=== PATIENT | female | born 1955 | race African-American/Black ===

== ENCOUNTER → 2017-02-28 | Day surgery (SDC) | payer OTHER ==
[2017-02-28 09:58] LABS: ALBUMIN 4.1 g/dl (3.4-5.0); ANION GAP 12 (8-16); CALCIUM 8.4 mg/dL (8.5-10.1); CO2 29 mmol/L (21-32); GLUCOSE,RANDOM 115 mg/dL (74-106)
[2017-02-28 10:10] LABS: ALK PHOS 63 U/L (45-117); BILIRUBIN,TOTAL 0.7 mg/dL (0.2-1.0); COCKROFT - GAULT 0; CREATININE 0.8 mg/dL (0.55-1.02); FREE T4 1.06 ng/dl (0.76-1.46); SGOT/AST 114 U/L (15-37); SGPT/ALT 99 U/L (12-78); THYROID STIMULATING HORMONE 0.56 uIU/ml (0.358-3.74)
[2017-03-01 06:06] LABS: FREE T3 3.5 pg/mL (2.0-4.4)
--- NOTE | 2017-03-07 11:18 | PATH ---
Cytology Non-Gynecological Report Patient Name: MAGALIE MENDOZA [facility]. Rec. #: [id number] /Age/Gender: 1955 (Age: 61) / F Account: [id number] Location: RADIOLOGY Taken: 02/28/2017 Received: 02/28/2017 Reported: 03/01/2017 Physicians: Kin Squires M.D. Specimen(s) Received RIGHT THYROID FNA Clinical History Right thyroid nodule, 1.97 x 1.07 x 1.26 cm Final Diagnosis THYROID GLAND, RIGHT LOBE, US GUIDED FINE NEEDLE ASPIRATION BIOPSY: SATISFACTORY FOR EVALUATION. NO MALIGNANT CELLS IDENTIFIED. CONSISTENT WITH NODULAR GOITER (BENIGN FOLLICULAR NODULE, BETHESDA CATEGORY II, BENIGN), SEE COMMENT. Comment: The smear show clusters of bland appearing follicular epithelial cells arranged in mixed macro-and microfollicles. Colloid is present. Electronically Signed Jean Claude Guzmán M.D. Gross Description Received are three air dried smears, three smears in 95% alcohol, and 20 cc of bloody fluid in formalin. Three diff-quik stained slides, three Pap stained slides and one cell block are made.
== END | disposition home or self-care (01) ==
LOC: JRADIR 08:40
PROVIDERS: ATTEND Internal Medicine Endocrinology, Diabetes & Metabolism
PROC: 0G9H3ZX Drainage of Right Thyroid Gland Lobe, Percutaneous Approach, Diagnostic (ICD-10-PCS; principal; 2017-02-28)
PROC: BG44ZZZ Ultrasonography of Thyroid Gland (ICD-10-PCS; 2017-02-28)
DX: E04.1 Nontoxic single thyroid nodule (principal)
CPT/HCPCS: 36415; 76942; 80053; 84439; 84443; 84445; 84481; 86376; 88173; 88305-TC

== ENCOUNTER → 2018-08-20 | Day surgery (SDC) | payer OTHER ==
--- NOTE | 2018-08-21 16:52 | PATH ---
Cytology Non-Gynecological Report Patient Name: MAGALIE MENDOZA [facility]. Rec. #: [id number] /Age/Gender: 1955 (Age: 63) / F Account: [id number] Location: RADIOLOGY INTER Taken: 08/20/2018 Received: 08/20/2018 Reported: 08/21/2018 Physicians: Kin Squires M.D. Specimen(s) Received THYROID FNA LEFT Clinical History Left thyroid nodule, 1.56 x 0.98 x 0.88 cm Final Diagnosis THYROID, LEFT, FINE NEEDLE ASPIRATION: SATISFACTORY FOR EVALUATION. BETHESDA CLASS II: BENIGN. CYTOLOGIC FINDINGS ARE CONSISTENT WITH A BENIGN FOLLICULAR NODULE WITH CYSTIC CHANGE. FOLLICULAR CELLS WITH FOCAL REACTIVE CHANGES DISPERSED SHEETS, AGGREGATES, MACRO AND MICRO-FOLLICLES IN A BACKGROUND OF THIN COLLOID AND MACROPHAGES. Electronically Signed Rea Marie M.D. Gross Description Received are eight direct smears, four of which are air-dried and Diff-Quik stained, and four of which are alcohol fixed and Pap stained. Also received is 20 ml of bloody formalin from which one cellblock is prepared.
== END | disposition home or self-care (01) ==
LOC: JRADIR 09:23
PROVIDERS: ATTEND Internal Medicine Endocrinology, Diabetes & Metabolism
PROC: 0G9G3ZX Drainage of Left Thyroid Gland Lobe, Percutaneous Approach, Diagnostic (ICD-10-PCS; principal; 2018-08-20)
DX: E04.1 Nontoxic single thyroid nodule (principal)
CPT/HCPCS: 76942; 88173; 88305-TC

== ENCOUNTER 2020-07-24 18:01 | Emergency (ER) | payer OTHER ==
--- OUTSIDE RECORDS SUMMARY | 2020-07-24 18:16 | XMS ---
:1955 Author Organization [facility] Care Team Providers Name Role Phone DiGSukumar grant Unavailable [phone] DiGiorno, Christopher Unavailable [phone] DiGiorno, Christopher Unavailable [phone] Re-disclosure Warning The records that you are about to access may contain information from federally- assisted alcohol or drug abuse programs. If such information is present, then the following federally mandated warning applies: This information has been disclosed to you from records protected by federal confidentiality rules (42 CFR part 2). The federal rules prohibit you from making any further disclosure of this information unless further disclosure is expressly permitted by the written consent of the person to whom it pertains or as otherwise permitted by 42 CFR part 2. A general authorization for the release of medical or other information is NOT sufficient for this purpose. The Federal rules restrict any use of the information to criminally investigate or prosecute any alcohol or drug abuse patient.The records that you are about to access may contain highly sensitive health information, the redisclosure of which is protected by Article 27-F of the [facility] Public Health law. If you continue you may haveaccess to information: Regarding HIV / AIDS; Provided by facilities licensed or operated by the [facility] Office of Mental Health; or Provided by the [facility] Office for People With Developmental Disabilities. If such information is present, then the following [facility] mandated warning applies: This information has been disclosed to you from confidential records which are protected by state law. State law prohibits you from making any further disclosure of this information without the specific written consent of the person to whom it pertains, or as otherwise permitted by law. Any unauthorized further disclosure in violation of state law may result in a fine or half-way sentence or both. A general authorization for the release of medical or other information is NOT sufficient authorization for further disclosure. Encounters Encounter Providers Location Date Indications Data Source(s ) Attender: [place] 06/16/2020 [facility] [place] [place]:[facility]:00 AM Medical, ) EDT Office Attender: [place] 06/16/2020 12:00:00 AM ED T MEDGEN ([facility], ) Office Attender: [place] 06/16/2020 12:00:00 AM ED T MEDGEN ([facility], ) Office Medications Medication Brand Start Product Dose Route Administrative Pharmacy [facility] Indications Reaction Description Data Name Date Form Instructions Instructions Source(s) Hydrochloro HYDROC 06/16/ complet HYDROC HLOROT MEDGEN (St thiazide 25 HLOROT 2019 ed HIAZIDE-LOS A [facility] MG / HIAZID 12:00: RTAN Medical, Losartan E-LOSA 00 AM PC) Potassium RTAN:9 EDT 100 MG Oral 14551 Tablet HYDROCHLORO THIAZIDE-LO SARTAN:9794 71 Lecithin LECITH 06/16/ complet LECITHIN MED[facility] (St LECITHIN:82 IN:822019 ed [facility] 14 4 12:00: Medical, 00 AM PC) EDT Lecithin LECITH 06/16/ complet LECITHIN [facility] (St LECITHIN:82 IN:822019 ed [facility] 14 4 12:00: Medical, 00 AM PC) EDT pantoprazol PANTOP complet PANTOP RAZOLE [facility] (St e 40 MG RAZOLE 2019 ed [facility] Delayed :41754 12:00: Medical, Release 0 00 AM PC) Oral Tablet EDT PANTOPRAZOL E:[id number] Amlodipine AMLODI 06/16/ complet AMLODIP INE MED[facility] (St 10 MG Oral PINE:3 2019 ed [facility] Tablet 38198 12:00: Medical, AMLODIPINE: 00 AM PC) [id number] EDT Zolpidem ZOLPID 06/16/ complet ZOLPIDEM [facility] (St tartrate 10 EM:854 2019 ed [facility] MG Oral 873 12:00: Medical, Tablet 00 AM PC) ZOLPIDEM:85 EDT 4873 atorvastati ATORVA 06/16/ complet ATORVA STATIN [facility] (St n 20 MG STATIN 2019 ed [facility] Oral Tablet :85149 12:00: Medi wyatt, ATORVASTATI 0 00 AM PC) N:[id number] EDT atorvastati ATORVA 06/16/ complet ATORVA STATIN [facility] (St n 20 MG STATIN 2019 ed [facility] Oral Tablet :81124 12:00: Medi wyatt, ATORVASTATI 0 00 AM PC) N:[id number] EDT Hydrochloro HYDROC 06/16/ complet HYDROC HLOROT [facility] (St thiazide 25 HLOROT 2019 ed HIAZIDE-LOS A [facility] MG / HIAZID 12:00: RTAN Medical, Losartan E-LOSA 00 AM PC) Potassium RTAN:9 EDT 100 MG Oral 29166 Tablet HYDROCHLORO THIAZIDE-LO SARTAN:9794 71 Zolpidem ZOLPID 06/16/ complet ZOLPIDEM [facility] (St tartrate 10 EM:854 2019 ed [facility] MG Oral 873 12:00: Medical, Tablet 00 AM PC) ZOLPIDEM:85 EDT 4873 pantoprazol PANTOP 06/16/ complet PANTOP RAZOLE [facility] (St e 40 MG RAZOLE 2019 ed [facility] Delayed :42734 12:00: Medical, Release 0 00 AM PC) Oral Tablet EDT PANTOPRAZOL E:790244 Amlodipine AMLODI 06/16/ complet AMLODIP INE [facility] (St 10 MG Oral PINE:3 2019 ed [facility] Tablet 75759 12:00: Medical, AMLODIPINE: 00 AM PC) [id number] EDT Insurance Providers Payer name Policy type Policy ID Covered Covered democrat's Policy P neeraj / Coverage democrat ID relationship to Narayan Inf ormation type narayan GHI CBP OUTPT [id number] SP [id number] MEDICARE [id number] SP [id number] GHI PPO [id number] SP [id number] MEDICARE [id number] SP [id number] [facility] [id number] [place] [id number] PART B [facility] PPO [facility] SP [facility] [id number] [facility] PPO [id number] SP [id number] Problems, Conditions, and Diagnoses Code Display Name Description Problem Type Effective Dates Data Source(s) K70.0 Alcoholic fatty ALCOHOLIC FATTY Problem 06/16/2020 MEDG EN (St liver LIVER 12:00:00 AM EDT Carmen cadet, ) K30 Functional FUNCTIONAL Problem 06/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 MEDGEN (St dyspepsia DYSPEPSIA 12:00:00 AM EDT Carmen cadet ) Z12.11 Encounter for ENCOUNTER FOR Problem 06/16/2020 MEDGEN ( St screening for SCREENING FOR 12:00:00 AM EDT [facility] MALIGNANT NEOPLASM PC) neoplasm of colon OF COLON Surgeries/Procedures Procedure Description Date Indications Data Source(s) Documentation of current 06/16/2020 MED [facility] ([facility] (procedure) 12:00:00 AM EDT Rainer jacinto ) Documentation of current 06/16/2020 MED [facility] ([facility] (procedure) 12:00:00 AM EDT Rainer jacinto ) COLLECTION VENOUS BLOOD 06/16/2020 MED[facility] EN ([facility] VENIPUN[facility]URE 12:00:00 AM T [facility] ) Documentation of current 06/16/2020 MED GEN ([facility] (procedure) 12:00:00 AM EDT Rainer jacinto ) Social History Code Duration Value Status Description Data Source(s ) Smoking 06/16/2020 Born in completed Born in [facility] (St 12:00:00 AM EDT [place] Ex tobacco, quit ) tobacco, quit smoking 1995 Drinks smoking 1995 multiple glasses of Drinks multiple wine every day No glasses of wine IVDA/DA every day No IVDA/DA Smoking 06/16/2020 Unknown if ever completed Unknown if ever MEDG EN (St 12:00:00 AM EDT smoked smoked Carmen cadet ) Smoking 06/16/2020 Born in completed Born in [place] [facility] (St 12:00:[place] Ex Carmen Spear [place], [place] Ex tobacco, quit ) tobacco, quit smoking 1995 Drinks smoking 1995 multiple glasses of Drinks multiple wine every day No glasses of wine IVDA/DA every day No IVDA/DA Smoking 06/16/2020 Unknown if ever completed Unknown if ever MEDG EN (St 12:00:00 AM EDT smoked smoked Carmen Reaves dicjaden, ) Vital Signs ID Date Data Source UNK Name Value Range Interpretation Code Description Data Source(s) Heart rate 93 /min 93 /min [facility] ([facility] , ) Inhaled oxygen 96 % 96 % MED[facility] ([facility]) Body mass index 31.6 kg/m2 31.6 kg/m2 MEDGEN (S t (BMI) [Ratio] [facility]) Diastolic blood 70 mm[Hg] 70 mm[Hg] MEDGEN (S [facility]) Systolic blood 138 mm[Hg] 138 mm[Hg] MEDGEN ([facility]) Body weight 162 lb 162 lb MEDGEN ([facility]) Body height 60 in 60 in MED[facility] ([facility]) Heart rate 93 /min 93 /min [facility] ([facility]) Inhaled oxygen 96 % 96 % MEDGEN ([facility]) Body mass index 31.6 kg/m2 31.6 kg/m2 MEDGEN (S t (BMI) [Ratio] [facility]) Diastolic blood 70 mm[Hg] 70 mm[Hg] MEDGEN (S [facility]) Systolic blood 138 mm[Hg] 138 mm[Hg] MEDGEN ([facility]) Body weight 162 lb 162 lb MEDGEN ([facility]) Body height 60 in 60 in MED[facility] ([facility])
[2020-07-24 18:22] VITALS: BP 141/70; PULSE 80; TEMP 99.2; BMI 30.6
--- NOTE | 2020-07-24 18:35 | PDOC ---
History of Present Illness - General Chief Complaint: Cold Symptoms Stated Complaint: COLD SYMPTOMS Time Seen by Provider: 07/24/20 18:15 - History of Present Illness Initial Comments: 07/24/20 18:32 65 F with h/o HTN, HLD presenting to ED with cough and sore throat x 1 week. Pt states that she started having a sore throat, which she gets often and attributes to her hiatal hernia and reflux. Pt then developed a dry cough. She denies any F/C. Pt notes that her cough is worse at night. Denies any SOB. Pt states that she was prescribed augmentin by her PMD, remotely. However, after one dose last night, pt began to have GI upset, with vomiting and diarrhea. This has since resolved. Pt denies N/V/D currently. 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) COPD: No HTN: Yes Hypercholesterolemia: Yes Thyroid Disease: Yes - Surgical History Abdominal Surgery: Yes (EXPLORATORY) - Reproductive History Is Patient Now?: No - Psycho-Social/Smoking History Smoking Status: Yes Smoking History: Never smoked Have you smoked in the past 12 months: No Number of Cigarettes Smoked Daily: 0 If you are a former smoker, when did you quit?: 1985 Information on smoking cessation initiated: No - Substance Abuse Hx (Audit-C & DAST Scrn) How often the patient has a drink containing alcohol: Never Score: In Men: 4 or > Positive; In Women: 3 or > Positive: 0 Screen Result (Pos requires Nsg. Audit-10AR): Negative In the last yr the pt used illegal drug/Rx for NonMed reason: No Score: Yes response is considered Positive: 0 Screen Result (Positive result requires Nsg. DAST-10): Negative Review of Systems - Review of Systems Comments:: 07/24/20 18:35 "GENERAL/CONSTITUTIONAL: No fever or chills. No weakness. HEAD, EYES, EARS, NOSE AND THROAT: No change in vision. No ear pain or discharge. + sore throat. CARDIOVASCULAR: No chest pain, no shortness of breath, no loss of consciousness RESPIRATORY: + cough, no wheezing, or hemoptysis. GASTROINTESTINAL: No nausea, vomiting, diarrhea or constipation. GENITOURINARY: No dysuria, frequency, or change in urination. MUSCULOSKELETAL: No joint or muscle swelling or pain. No neck or back pain. SKIN: No rash NEUROLOGIC: No vertigo, no change in strength/sensation. ENDOCRINE: No increased thirst. No abnormal weight change. HEMATOLOGIC/LYMPHATIC: No anemia, easy bleeding, or history of blood clots. *Physical Exam - Vital Signs Last Vital Signs Temp Pulse Resp BP Pulse Ox 99.2 F 80 20 141/70 100 07/24/20 18:09 07/24/20 18:09 07/24/20 18:09 07/24/20 18:09 07/24/20 18:09 - Physical Exam 07/24/20 18:35 GENERAL: Awake, alert, and fully oriented, in no acute distress. HEAD: No signs of trauma EYES: PERRLA, EOMI, sclera anicteric, conjunctiva clear ENT: Auricles normal inspection, hearing grossly normal, nares patent, oropharynx clear without exudates. Moist mucosa NECK: Nontender, no stepoffs, Normal ROM, supple, no lymphadenopathy, JVD, or masses LUNGS: Breath sounds equal, clear to auscultation bilaterally. No wheezes, and no crackles HEART: Regular rate and rhythm, normal S1 and S2, no murmurs, rubs or gallops ABDOMEN: Soft, nontender, normoactive bowel sounds. No guarding, no rebound. No masses EXTREMITIES: Normal range of motion, no edema. No clubbing or cyanosis. No cords, erythema, or tenderness NEUROLOGICAL: Cranial nerves II through XII intact. 5/5 strength and sensation in all extremities, Normal speech, normal gait, normal cerebellar function SKIN: Warm, Dry, normal turgor, no rashes or lesions noted. ED Treatment Course - RADIOLOGY Radiology Studies Ordered: Category Date Time Status CHEST PA & LAT [RAD] Stat Radiology 07/24/20 18:29 Ordered Medical Decision Making - Medical Decision Making 07/24/20 18:35 65 F with cough and sore throat. Pt very well appearing, with normal exam. - COVID, strep - CXR 07/24/20 19:09 CXR clear on my read STrep negative Pt is well appearing, with normal vitals. Clinically stable for DC at this time. I discussed the physical exam findings, ancillary test results and final diagnoses with the patient. I answered all of the patient's questions. The patient was satisfied with the care received and felt comfortable with the discharge plan and treatment plan. The patient agrees to follow up with the primary care physician within 24-72 hours. Discharge - Discharge Information Problems reviewed: Yes Clinical Impression/Diagnosis: Cough, Sore throat Condition: Stable Disposition: HOME - Follow up/Referral - Patient Discharge Instructions Patient Printed Discharge Instructions: DI for Cough -- Adult, [facility] COVID-19 Isolation Protocol Additional Instructions: Your COVID test will likely result in 2-3 days. We will call you with the result. In the meantime, be sure to isolate from others to prevent potential spread of the illness. If you experience worsening cough, shortness of breath, chest pain, or any other concerning symptoms, return to the ER immediately. - Post Discharge Activity
== END 2020-07-24 19:15 | disposition home or self-care (01) ==
LOC: FER 18:01
DX: R05 Cough (principal); J02.9 Acute pharyngitis, unspecified
CPT/HCPCS: 71046-TC-FY; 87070; 87880; 99284-25; C9803; U0003

== ENCOUNTER 2021-02-01 04:43 | Day surgery (SDC) | payer OTHER ==
[2021-01-26 15:42] VITALS: BMI 32.8
[2021-02-01 11:50] VITALS: TEMP 97.6
[2021-02-01 12:45] VITALS: BP 120/51; PULSE 80
== END 2021-02-01 12:45 | disposition home or self-care (01) ==
LOC: JASU-ENDO 04:43 → MERGE 11:30 → JASU-ENDO 12:45
PROVIDERS: ATTEND Internal Medicine Gastroenterology
PROC: 0DB78ZX Excision of Stomach, Pylorus, Via Natural or Artificial Opening Endoscopic, Diagnostic (ICD-10-PCS; 2021-02-01)
PROC: 0DB98ZX Excision of Duodenum, Via Natural or Artificial Opening Endoscopic, Diagnostic (ICD-10-PCS; principal; 2021-02-01 11:30)
DX: K31.7 Polyp of stomach and duodenum (principal); D13.1 Benign neoplasm of stomach
CPT/HCPCS: 88305-TC; 88342-TC

== ENCOUNTER 2021-02-08 04:15 | Day surgery (SDC) | payer OTHER ==
[2021-02-04 16:43] VITALS: BMI 32.8
[2021-02-08 09:37] VITALS: TEMP 98
[2021-02-08 10:27] VITALS: BP 93/59; PULSE 76
== END 2021-02-08 10:28 | disposition home or self-care (01) ==
LOC: JASU-ENDO 04:15 → MERGE 09:00 → JASU-ENDO 10:28
PROVIDERS: ATTEND Internal Medicine Gastroenterology
PROC: 0DBK8ZX Excision of Ascending Colon, Via Natural or Artificial Opening Endoscopic, Diagnostic (ICD-10-PCS; principal; 2021-02-08 09:00)
DX: Z12.11 Encounter for screening for malignant neoplasm of colon (principal); K63.5 Polyp of colon; K64.8 Other hemorrhoids; K57.30 Diverticulosis of large intestine without perforation or abscess without bleeding; K63.89 Other specified diseases of intestine; K62.5 Hemorrhage of anus and rectum; Z86.010 Personal history of colon polyps
CPT/HCPCS: 88305-TC

== ENCOUNTER → 2023-07-12 | Day surgery (SDC) | payer OTHER | END | disposition home or self-care (01) | LOC: FMAMMOTONE 08:18 | PROVIDERS: ATTEND Internal Medicine Geriatric Medicine | PROC: 0HBT3ZX Excision of Right Breast, Percutaneous Approach, Diagnostic (ICD-10-PCS; principal; 2023-07-12) | DX: N64.89 Other specified disorders of breast (principal) | CPT/HCPCS: 19081; 76098-TC-FY; 87899; 88305-TC; 88342-TC; A4648 ==

== ENCOUNTER → 2023-09-24 | Day surgery (SDC) | payer OTHER ==
[~2023-09-24] MED LIST: PROPOFOL 20 ML ONE
== END | disposition home or self-care (01) ==
LOC: JRADUS-SUR 11:28
PROVIDERS: ATTEND Surgery Surgical Oncology
PROC: BH00ZZZ Plain Radiography of Right Breast (ICD-10-PCS; principal; 2023-09-24)
DX: D05.11 Intraductal carcinoma in situ of right breast (principal)
CPT/HCPCS: 19281; A4648

== ENCOUNTER 2023-09-26 04:24 | Day surgery (SDC) | payer OTHER ==
[2023-09-26 10:37] VITALS: BMI 31.1
[2023-09-26] MEDS ORDERED: BUPIVACAINE HCL/PF 0.5% (5MG/ML) 10 ML VIAL ONE (11:06)
[2023-09-26] MEDS ORDERED: LIDOCAINE 1%/EPI 1:100000 (20 ML MULTI DOSE VIAL) ONE ×2 (11:06→11:07)
[2023-09-26] MEDS ORDERED: BUPIVACAINE HCL/PF 0.5% (5 MG/ML) 30 ML VIAL IJ ONE (12:43)
[2023-09-26] MEDS ORDERED: ONDANSETRON 4 MG/2 ML VIAL ONE (12:48)
[2023-09-26] MEDS ORDERED: DEXAMETHASONE SOD PHOSPHATE 4 MG/1 ML VIAL ONE (12:48)
[2023-09-26] MEDS ORDERED: KETOROLAC TROMETHAMINE 30 MG/1 ML VIAL ONE (12:48)
[2023-09-26] MEDS ORDERED: DEXTROSE 50%-WATER 25 GM/50 ML DISP.SYRIN ONE (12:48)
[2023-09-26] MEDS ORDERED: ONDANSETRON 4 MG/2 ML VIAL IVPUSH PRN (12:55)
[2023-09-26] MEDS ORDERED: oxyCODONE HCL 5 MG TABLET PO PRN (12:55)
[2023-09-26] MEDS ORDERED: LACTATED RINGERS SOLUTION 1,000 ML IV SCH (13:00)
[2023-09-26 14:47] VITALS: RESP 16
[2023-09-26 16:43] VITALS: BP 143/74; PULSE 80; TEMP 97.1
== END 2023-09-26 16:20 | disposition home or self-care (01) ==
LOC: JASU-SURG 04:24
PROVIDERS: ATTEND Surgery Surgical Oncology
PROC: 0HBT0ZZ Excision of Right Breast, Open Approach (ICD-10-PCS; principal; 2023-09-26 12:00)
DX: D05.11 Intraductal carcinoma in situ of right breast (principal); D24.1 Benign neoplasm of right breast; N60.11 Diffuse cystic mastopathy of right breast; N60.21 Fibroadenosis of right breast; N60.31 Fibrosclerosis of right breast; N60.81 Other benign mammary dysplasias of right breast; N60.91 Unspecified benign mammary dysplasia of right breast; N64.89 Other specified disorders of breast
CPT/HCPCS: 76098-TC-FY; 88307-TC; 94760

== ENCOUNTER 2024-07-24 04:14 | Day surgery (SDC) | payer OTHER ==
[2024-07-22 11:58] VITALS: BMI 32.2
[2024-07-24] MEDS ORDERED: BUPIVACAINE HCL/PF 0.5% (5MG/ML) 10 ML VIAL ONE (07:53)
[2024-07-24] MEDS ORDERED: ETOMIDATE 20 MG/10 ML VIAL IVPUSH ONE (08:42)
[2024-07-24] MEDS ORDERED: PROPOFOL 20 ML ONE (08:42)
[2024-07-24] MEDS ORDERED: ROCURONIUM BROMIDE 50 MG/5 ML SYRINGE ONE (08:43)
[2024-07-24] MEDS ORDERED: MIDAZOLAM HCL 2 MG/2 ML SINGLE DOSE VIAL ONE (08:44)
[2024-07-24] MEDS: ceFAZolin SODIUM 1 GM VIAL IVPB ONE (09:17)
[2024-07-24] MEDS: BUPIVACAINE HCL/PF 0.5% (5 MG/ML) 30 ML VIAL IJ ONE ×2 (09:25)
[2024-07-24] MEDS: LIDOCAINE HCL 1%, 10 MG/ML (20ML VIAL) NR ONE ×2 (09:25)
[2024-07-24] MEDS ORDERED: SUGAMMADEX SODIUM 200 MG/2 ML VIAL ONE (09:35)
[2024-07-24] MEDS: BACITRACIN ZINC 15 GM TUBE TOPICAL OINTMENT TP ONE (09:43)
[2024-07-24] MEDS: LACTATED RINGERS SOLUTION 1,000 ML IV SCH (10:15)
[2024-07-24 11:17] VITALS: RESP 18
[2024-07-24] MEDS ORDERED: ONDANSETRON 4 MG/2 ML VIAL ONE (11:29)
[2024-07-24] MEDS: ONDANSETRON 4 MG/2 ML VIAL IVPUSH ONE (11:35)
[2024-07-24] MEDS ORDERED: BACITRACIN ZINC 15 GM TUBE TOPICAL OINTMENT ONE (12:20)
[2024-07-24 14:45] VITALS: BP 118/61; PULSE 67; TEMP 98
== END 2024-07-24 13:40 | disposition home or self-care (01) ==
LOC: JASU-SURG 04:14
PROVIDERS: ATTEND Surgery
PROC: 0HB6XZZ Excision of Back Skin, External Approach (ICD-10-PCS; principal; 2024-07-24 10:00)
DX: L91.0 Hypertrophic scar (principal)
CPT/HCPCS: 88305-TC; 94760

== ENCOUNTER → 2024-08-06 | Day surgery (SDC) | payer OTHER | END | disposition home or self-care (01) | LOC: JMAMMO-SUR 13:06 | PROVIDERS: ATTEND Registered Nurse | PROC: 0H9U3ZX Drainage of Left Breast, Percutaneous Approach, Diagnostic (ICD-10-PCS; principal; 2024-08-06) | DX: N63.0 Unspecified lump in unspecified breast (principal) | CPT/HCPCS: 19083; 76098-TC-FY; 76942-TC; 77065-TC; 87899; 88305-TC; A4648 ==

== ENCOUNTER 2024-08-12 13:19 | Emergency (ER) | payer OTHER ==
[2024-08-12 13:32] VITALS: TEMP 97.9; BMI 32.2
[2024-08-12] MEDS ORDERED: ONDANSETRON 4 MG/2 ML VIAL ONE (13:38)
[2024-08-12] MEDS ORDERED: ACETAMINOPHEN INJECTION 100 ML ONE (13:39)
[2024-08-12] MEDS: ACETAMINOPHEN 1000 MG/100 ML BAG IVPB ONE (13:42)
[2024-08-12] MEDS: ONDANSETRON 4 MG/2 ML VIAL IVPUSH ONE (13:42)
[2024-08-12] MEDS: SODIUM CHLORIDE 1,000 ML IV ONE (13:56)
[2024-08-12 13:58] LABS: PROTHROMBIN TIME (PATIENT) 11.4 SEC (9.7-13.0)
[2024-08-12 14:09] LABS: HEMOGLOBIN 11.7 G/dL (10.7-15.3); MCH 27.4 pg (25.7-33.7); MCHC 30.8 g/dl (32.0-36.0); MEAN PLT VOLUME 10.8 fl (7.5-11.1); PLATELET COUNT 198.4 10^3/uL (134-434); RBC 4.27 10^6/uL (3.60-5.2); RDW 14.9 % (11.6-15.6); WHITE BLOOD COUNT 10.5 10^3/uL (4.0-10.8)
[2024-08-12 14:12] LABS: ALBUMIN 4.3 g/dl (3.4-5.0); BILIRUBIN,TOTAL 0.5 mg/dl (0.2-1); CALCIUM 10.3 mg/dl (8.5-10.1); CREATININE 0.8 mg/dl (0.6-1.3); POTASSIUM 3.4 mmol/L (3.5-5.1); TOT PROT 7.3 g/dl (6.4-8.2)
[2024-08-12 14:15] LABS: PLATELET ESTIMATE ADEQUATE
[2024-08-12 17:45] LABS: HEMATOCRIT 35.5 % (32.4-45.2); HEMOGLOBIN 10.9 G/dL (10.7-15.3); MCH 27.6 pg (25.7-33.7); MCHC 30.8 g/dl (32.0-36.0); MEAN CELL VOLUME 89.6 fl (80-96); MEAN PLT VOLUME 10.9 fl (7.5-11.1); PLATELET COUNT 163.9 10^3/uL (134-434); RBC 3.96 10^6/uL (3.60-5.2); RDW 14.8 % (11.6-15.6)
[2024-08-12 18:21] VITALS: BP 131/77; PULSE 73; RESP 18
== END 2024-08-12 18:29 | disposition home or self-care (01) ==
LOC: FER 13:19
PROC: 3E033NZ Introduction of Analgesics, Hypnotics, Sedatives into Peripheral Vein, Percutaneous Approach (ICD-10-PCS; principal; 2024-08-12)
PROC: 3E033GC Introduction of Other Therapeutic Substance into Peripheral Vein, Percutaneous Approach (ICD-10-PCS; 2024-08-12)
PROC: 3E0337Z Introduction of Electrolytic and Water Balance Substance into Peripheral Vein, Percutaneous Approach (ICD-10-PCS; 2024-08-12)
DX: N64.89 Other specified disorders of breast (principal)
CPT/HCPCS: 36415; 80053; 84484; 85027; 85610; 86850; 86900; 86901; 93005; 99284-25; J0131

== ENCOUNTER → 2024-08-12 | Day surgery (SDC) | payer OTHER | END | disposition home or self-care (01) | LOC: FMAMMOTONE 09:52 | PROVIDERS: ATTEND Registered Nurse | PROC: 0HBT3ZX Excision of Right Breast, Percutaneous Approach, Diagnostic (ICD-10-PCS; principal; 2024-08-12) | DX: D05.91 Unspecified type of carcinoma in situ of right breast (principal); N60.91 Unspecified benign mammary dysplasia of right breast; N64.89 Other specified disorders of breast; R93.1 Abnormal findings on diagnostic imaging of heart and coronary circulation | CPT/HCPCS: 19081; 76098-TC-FY; 76641-TC-RT; 87899; A4648 ==